=== PATIENT | female | born 1985 | race Caucasian/White ===

== ENCOUNTER 2017-08-12 11:04 | Emergency (ER) | payer MEDICAID ==
[~2017-08-12] VITALS: Ht 172.7 cm; Wt 81.6 kg
[~2017-08-12 11:04] MED LIST: CPR500T PO; CRS350T PO; DCS100C PO; DIAZ-345 PO; DIAZ10TA PO; DOCU100C37 PO; FOLI20CA PO; GBPN600T PO; HYDR25CA5 PO; HYOS0.1217 PO; IBUP-1780 PO; Ibuprofen PO; METO-370 PO; ONDA-43 PO; OXYC-12 PO; OXYC-465 PO; PNT40TEC PO; PREN1TAB19 PO; PRM25T PO; PROM6.25 PO; Tramadol Hcl PO
--- OUTSIDE RECORDS SUMMARY | 2017-08-12 11:10 | XMS REPORT | Clinical Summary ---
Author Author [facility] Organization [facility] Address Unknown Phone Unavailable Care Team Providers Care Industrial Relations Representative Name Role Phone PCP Unavailable Source Comments Some departments are not documenting in the electronic medical record. If you do not see the information that you expected, contact Release of Information in the Health Information Management department at [phone] for further assistance in locating additional records.[facility] Allergies Not on File Current Medications Not on file Active Problems Not on file Social History Tobacco Use Types Packs/Day Years Used Date Never Assessed Sex Assigned at Date Recorded Not on file Last Filed Vital Signs Not on file Plan of Treatment Health Maintenance Due Date Last Done Comments PHYSICAL (COMPREHENSIVE) 1994 EXAM PERTUSSIS VACCINE 1998 TETANUS VACCINE 01/29/2004 CERVICAL CANCER SCREENING 2017 INFLUENZA VACCINE 03/12/2017 Results Not on filefrom Last 3 Months
--- OUTSIDE RECORDS SUMMARY | 2017-08-12 11:11 | XMS REPORT | Continuity of Care Document ---
Author Author [facility] Organization [facility] Address Unknown Phone Unavailable Allergies Active Description Code Type Severity Reaction Onset Reported/Identified Relationship to Patient Clinical Status Yes codeine [id number] Drug Allergy Unknown N/A 09/17/2011 Yes Sulfa (Sulfonamide Antibiotics) [id number] Drug Allergy Unknown N/A 2011 Yes hydrocodone [id number] Drug Allergy Mild N/A 02/18/2013 Medications There is no data. Problems Date Dx Coded Attending Type Code Diagnosis Diagnosed By 02/19/2013 ANGIE SHEIKH DO S Ot 300.00 02/19/2013 KARMA SHEIKH DOLINE S Ot 305.1 02/19/2013 KARMA SHEIKH DOLINE S Ot 338.29 02/19/2013 JULIETTE SHEIKH DOQUELINE S Ot 530.81 02/19/2013 JULIETTE SHEIKH DOQUELINE S Ot 592.1 02/19/2013 JULIETTE SHEIKH DOQUELINE S Ot 722.52 02/19/2013 JULIETTE SHEIKH DOQUELINE S Ot 728.85 02/19/2013 KARMA SHEIKH DOLINE S Ot V13.02 04/11/2014 MICHAEL RAMOS, JESSICA Shen Ot 648.91 04/11/2014 MICHAEL RAMOS, JESSICA Shen Ot 658.01 04/11/2014 MICHAEL RAMOS, JESSICA Shen Ot V02.51 04/11/2014 MICHAEL RAMOS, JESSICA Shen Ot V06.1 04/11/2014 MICHAEL RAMOS, JESSICA Shen Ot V27.0 11/25/2014 ESTELA RAMOS, MARCELO Hackett Ot 649.53 11/25/2014 ESTELA RAMOS, MARCELO [place] Ot 651.03 11/25/2014 ESTELA RAMOS, MARCELO Hackett Ot V91.02 11/25/2014 RACIEL RAMOS, JASMEET Butler Ot 562.10 11/25/2014 RACIEL RAMOS, [facility] Ot V13.01 03/31/2015 MICHAEL RAMOS, JESSICA Ac Ot 644.03 03/31/2015 MICHAEL RAMOS, JESSICA G Ot 651.03 03/31/2015 MICHAEL RAMOS, JESSICA Shen Ot O30.009 03/31/2015 MICHAEL RAMOS, JESSICA Ac Ot V91.00 04/22/2015 RACIEL RAMOS, [facility] Ot 562.10 04/22/2015 RACIEL RAMOS, [facility] Ot V13.01 04/22/2015 RACIEL RAMOS, [facility] Ot 562.10 04/22/2015 RACIEL RAMOS, [facility] Ot V13.01 04/22/2015 MICHAEL RAMOS, JESSICA G Ot 275.2 04/22/2015 MICHAEL RAMOS, JESSICA Ac Ot 305.20 04/22/2015 MICHAEL RAMOS, JESSICA Ac Ot 427.89 04/22/2015 MICHAEL RAMOS, JESSICA Ac Ot 599.0 04/22/2015 MICHAEL RAMOS, JESSICA Shen Ot 646.63 04/22/2015 MICHAEL RAMOS, JESSICA Shen Ot 648.43 04/22/2015 MICHAEL RAMOS, JESSICA G Ot 648.63 04/22/2015 MICHAEL RAMOS, JESSICA Ac Ot 648.93 04/22/2015 MICHAEL RAMOS, JESSICA Shen Ot 649.03 04/22/2015 MICHAEL RAMOS, JESSICA Shen Ot 651.03 04/22/2015 MICHAEL RAMOS, JESSICA Ac Ot F12.10 04/22/2015 MICHAEL RAMOS, JESSICA Shen Ot N39.0 04/22/2015 MICHAEL RAMOS, JESSICA G Ot O30.009 04/22/2015 MICHAEL RAMOS, JESSICA G Ot V91.00 05/20/2015 MICHAEL RAMOS, JESSICA G Ot O30.033 05/20/2015 MICHAEL RAMOS, JESSICA Shen Ot Z37.2 05/20/2015 MICHAEL RAMOS, JESSICA Shen Ot Z3A.37 09/16/2015 LORRAINE RAMOS, VOLODYMYR Almanzar Ot L82.1 09/16/2015 LORRAINE RAMOS, VOLODYMYR Almanzar Ot L98.9 10/14/2015 RACIEL RAMOS, JASMEET Butler Ot M79.671 10/14/2015 JASMEET SCHRADER MD Ot M79.672 11/24/2015 MARCELO PALMER MD Ot F17.210 NICOTINE DEPENDENCE, CIGARETTES, UNCOMPL 11/24/2015 MARCELO PALMER MD Ot M94.0 CHONDROCOSTAL JUNCTION SYNDROME [TIETZE] Procedures There is no data. Results There is no data. Encounters ACCT No. Visit Date/Time Discharge Status Pt. Type Provider Facility Loc./Unit Complaint [id number] 11/24/2015 08:29:00 11/24/2015 11:10:00 DIS Emergency MARCELO PALMER MD [facility] ER [id number] 09/30/2015 14:30:00 09/30/2015 23:59:59 CLS Outpatient JASMEET SCHRADER MD [facility] RAD [id number] 09/16/2015 08:49:00 09/16/2015 11:55:00 DIS Outpatient VOLODYMYR PETERS MD [facility] [id number] 09/13/2015 05:33:00 09/13/2015 23:59:59 CLS Outpatient VOLODYMYR PETERS MD [facility] PREOP [id number] 05/18/2015 06:52:00 05/20/2015 23:59:00 DIS Inpatient JESSICA RODRIGUEZ MD [facility] LD [id number] 04/22/2015 13:50:00 04/22/2015 17:30:00 DIS Inpatient JESSICA RODRIGUEZ MD [facility] [id number] 03/31/2015 15:22:00 03/31/2015 18:20:00 DIS Outpatient JESSICA RODRIGUEZ MD [facility] WSo [id number] 11/25/2014 09:10:00 11/25/2014 12:22:00 DIS Emergency MARCELO PALMER MD [facility] ER [id number] 04/09/2014 06:37:00 04/11/2014 12:20:00 DIS Inpatient MICHAEL RAMOS, JESSICA Shen [facility] LDRP [id number] 05/27/2013 14:36:00 05/27/2013 23:59:59 CLS Outpatient RACIEL RAMOS, JASMEET Butler [facility] RAD [id number] 02/18/2013 12:03:00 02/19/2013 13:25:00 DIS Inpatient ANGIE SHEIKH DO S [facility] SURGICAL [id number] 01/08/2013 15:49:00 01/08/2013 23:59:59 CLS Outpatient
--- NOTE | 2017-08-12 13:10 | Diagnostic Imaging Report ---
INDICATION: Fever, posterior chest pain on the right, cough. FINDINGS: The lungs are clear. Cardiomediastinal and hilar contours were normal. Lung volumes are symmetric and unremarkable. No effusion, pneumothorax, or failure pattern. No free air beneath the diaphragms. IMPRESSION: No acute appearing abnormality. Dictated by: Dictated on workstation # [id number]
[2017-08-12] MEDS ORDERED: KETOROLAC 60 MG/2 ML VIAL IM ONE ×2 (13:23→13:30)
--- NOTE | 2017-08-12 13:23 | ED General ---
General Chief Complaint: Cough/Cold/Flu Symptoms Stated Complaint: FEVER;COUGH Nursing Triage Note: PT CO OF COLD COUGH AND FLU SX, HAD FEVER LAST PM 101.0 CO OF R SIDE AND UPPER BACK PAIN Nursing Sepsis Screen: No Definite Risk Source of Information: Patient Exam Limitations: No Limitations History of Present Illness Time Seen by Provider: 12:34 Initial Comments This 32-year-old woman presents to the emergency room with complaints of right- sided chest pain especially with movement, deep breathing, and cough. She has had a cough for about 6 weeks. She also had gastrointestinal symptoms last week with vomiting and diarrhea. Pain has been present in her right chest for about 5 days. She has not taken medication for it today. Allergies and Home Medications Allergies Coded Allergies: Sulfa (Sulfonamide Antibiotics) (Unverified Allergy, Unknown, 09/17/11) codeine (Unverified Allergy, Unknown, 09/17/11) hydrocodone (Verified Adverse Reaction, Mild, 02/18/13) Home Medications Metoprolol Succinate 50 Mg Tab.er.24h, 50 MG PO PRN, (Reported) Prednisone 20 Mg Tab, 40 MG PO DAILY, #8 Prescribed by: IRA MEJIA on 08/12/17 1327 Vit/Fe Fumarate/Fa 1 Each Tablet, 1 EACH PO DAILY, (Reported) Constitutional: no symptoms reported EENTM: no symptoms reported Respiratory: see HPI Cardiovascular: no symptoms reported Gastrointestinal: see HPI Genitourinary: no symptoms reported : No Musculoskeletal: see HPI Skin: no symptoms reported Psychiatric/Neurological: No Symptoms Reported Hematologic/Lymphatic: No Symptoms Reported Past Tgoxnjb-Bmsgjk-Wydzyd Hx Patient Social History Alcohol Use: Denies Use Recreational Drug Use: No Smoking Status: Current Everyday Smoker Type Used: Cigarettes Recent Foreign Travel: No Contact w/Someone Who Travel: No Recent Infectious Disease Expo: No Recent Hopitalizations: No Physical Abuse: No Sexual Abuse: No Immunizations Up To Date Date of Influenza Vaccine: May 13, 2015 Surgeries History of Surgeries: Yes (2 right foot surgeries, bladder biopsy, tailbone removed) Surgeries: Cardiac (Ablation for SVT), Orthopedic Respiratory History of Respiratory Disorde: No Respiratory Disorders: Asthma Cardiovascular History of Cardiac Disorders: Yes (Episodes of SVT) Neurological History of Neurological Disord: No Reproductive System : No Last Menstrual Period: Jul 22, 2017 Hx Reproductive Disorders: No Sexually Transmitted Disease: No HIV/AIDS: No Female Reproductive Disorders: Ovarian Cyst Genitourinary History of Genitourinary Disor: Yes Genitourinary Disorders: Kidney Stones, UTI-Chronic Gastrointestinal History of Gastrointestinal Di: Yes (HYPERMOTILITY) Gastrointestinal Disorders: Diverticulosis, Chronic Diarrhea, Esophageal Varices Musculoskeletal History of Musculoskeletal Dis: Yes Musculoskeletal Disorders: Degenerate Disk Disease, Arthritis, Scoliosis, Chronic Back Pain Endocrine History of Endocrine Disorders: No HEENT Loss of Vision: Denies Hearing Impairment: Denies Cancer History of Cancer: No Psychosocial History of Psychiatric Problem: Yes Behavioral Health Disorders: Anxiety Suicide Risk Score: 0 Integumentary History of Skin or Integumenta: No Blood Transfusions History of Blood Disorders: No Adverse Reaction to a Blood Tr: No Family Medical History Family Medial History: Not obtainable due to adoption Physical Exam Vital Signs Vital Sign - Last 12Hours 08/12/17 12:13 Temp 98.0 Pulse 72 Resp 18 B/P (MAP) 125/73 (90) Pulse Ox 97 Capillary Refill : Less Than 3 Seconds General Appearance: WD/WN, Mild Distress HEENT: PERRL/EOMI, TMs Normal, Normal ENT Inspection, Pharynx Normal Neck: Normal Inspection Respiratory: Lungs Clear, Normal Breath Sounds, No Accessory Muscle Use, No Respiratory Distress, Other (Right lateral and the lower anterior chest wall tender to palpation) Cardiovascular: Regular Rate, Rhythm, No Edema, No Murmur Gastrointestinal: Normal Bowel Sounds, Non Tender, Soft Extremity: Normal Inspection, No Pedal Edema Neurologic/Psychiatric: Alert, Oriented x3, No Motor/Sensory Deficits, Normal Mood/Affect, pin or clip fastener II-XII Norm as Tested Skin: Normal Color, Warm/Dry Progress/Results/Core Measures Suspected Sepsis Recent Fever Within 48 Hours: No Infection Criteria Present: None New/Unexplained Altered Menta: No Sepsis Screen: No Definite Risk Sepsis Diagnosis: SIRS Temperature:98.0 Pulse: 72 Respiratory Rate: 18 Blood Pressure 125 /73 Mean: 90 Results/Orders My Orders Vital Signs/I&O Capillary Refill : Less Than 3 Seconds Blood Pressure Mean: 90 Diagnostic Imaging Diagonstic Imaging: Xray Plain Films/CT/US/NM/MRI: chest Comments Chest x-ray viewed by me and report reviewed. See report below: NAME: EARL SCHRADER [facility]eev [facility] REC#: [id number] PT STATUS: REG ER : 1985 PHYSICIAN: IRA LOO MD ADMIT DATE: 08/12/17/ER Signed Date of Exam: 08/12/17 CHEST PA/LAT (2 VIEW) INDICATION: Fever, posterior chest pain on the right, cough. FINDINGS: The lungs are clear. Cardiomediastinal and hilar contours were normal. Lung volumes are symmetric and unremarkable. No effusion, pneumothorax, or failure pattern. No free air beneath the diaphragms. IMPRESSION: No acute appearing abnormality. Dictated by: Dictated on workstation # [id number] Dict: 08/12/17 1307 Trans: 08/12/17 1453 Interpreted by: LAINE DAVIS Electronically signed by: LAINE DAVIS 08/12/17 1453 Departure Impression Impression: Primary Impression: Pleuritic chest pain Disposition: HOME, SELF-CARE Condition: Improved Departure-Patient Inst. Decision time for Depature: 13:00 Referrals: NO,LOCAL PHYSICIAN (PCP) Primary Care Physician Patient Instructions: Chest Pain That Is Not Caused by the Heart (DC) Add. Discharge Instructions: You may continue taking ibuprofen up to 800 mg 3 times daily. Add Tylenol ( acetaminophen) up to 1000 g every 6 hours as needed for additional pain relief. Use the steroids (prednisone) as prescribed. You should experience gradual improvement in pain with these measures over the next few days. Return to care if you have worsening symptoms. Reduce smoking as much as possible and work toward quitting. All discharge instructions reviewed with patient and/or family. Voiced understanding. Scripts Prednisone (Prednisone) 20 Mg Tab 40 MG PO DAILY, #8 TAB Prov: IRA LOO MD 08/12/17 IRA LOO MD Aug 12, 2017 13:23
[2017-08-12] MEDS ORDERED: PRD20T PO (13:27)
[2017-08-12 14:07] VITALS: BP 125/73
== END 2017-08-12 14:07 | disposition home or self-care (01) ==
LOC: EDUNIT# 11:04 → ER 11:06
DX: R07.81 Pleurodynia (principal); J45.909 Unspecified asthma, uncomplicated; F41.9 Anxiety disorder, unspecified; F17.210 Nicotine dependence, cigarettes, uncomplicated; Z87.19 Personal history of other diseases of the digestive system
CPT/HCPCS: 71046; 99284

== ENCOUNTER 2019-04-30 15:08 | Emergency (ER) | payer MEDICAID ==
[~2019-04-30] VITALS: Ht 172 cm; Wt 88.0 kg
[~2019-04-30 15:08] MED LIST changes: +PRD20T PO
[2019-04-30] MEDS ORDERED: FAMOTIDINE 20MG/2ML IV (PEPCID) IV STA (15:33)
[2019-04-30] MEDS ORDERED: ANTACID SUSP 30 ML UDC (MYLANTA) PO ONE (15:45)
[2019-04-30] MEDS ORDERED: LIDOCAINE 2% VISCOUS 15 ML UDC PO ONE (15:45)
[2019-04-30 15:51] LABS: BASOPHILS % (AUTO) 0 % (0-10); EOSINOPHILS # (AUTO) 0.1 10^3/uL (0.0-0.3); EOSINOPHILS % (AUTO) 1 % (0-10); HEMATOCRIT 36 % (35-52); LYMPHOCYTES % (AUTO) 24 % (12-44); MEAN CORPUSCULAR HEMOGLOBIN 31 PG (25-34); MEAN CORPUSCULAR HGB CONC 34 G/DL (32-36); MEAN CORPUSCULAR VOLUME 93 FL (80-99); MEAN PLATELET VOLUME 9.7 FL (7.4-10.4); MONOCYTES # (AUTO) 0.9 X 10^3 (0.0-1.0); MONOCYTES % (AUTO) 7 % (0-12); NEUTROPHILS # (AUTO) 8.5 X 10^3 (1.8-7.8); NEUTROPHILS % (AUTO) 68 % (42-75); PLATELET COUNT 255 10^3/uL (130-400); RED CELL DISTRIBUTION WIDTH 12.8 % (10.0-14.5); WHITE BLOOD COUNT 12.5 10^3/uL (4.3-11.0)
[2019-04-30 16:03] LABS: ALANINE AMINOTRANSFERASE 6 U/L (0-55); ALBUMIN 3.5 GM/DL (3.2-4.5); ALKALINE PHOSPHATASE 107 U/L (40-136); BILIRUBIN,TOTAL 0.2 MG/DL (0.1-1.0); BUN/CREATININE RATIO 10; CALCIUM 9.1 MG/DL (8.5-10.1); CARBON DIOXIDE 21 MMOL/L (21-32); CHLORIDE 107 MMOL/L (98-107); CREATININE SERUM 0.72 MG/DL (0.60-1.30); GFR ESTIMATED > 60; GLUCOSE 87 MG/DL (70-105); MAGNESIUM 1.6 MG/DL (1.6-2.4); POTASSIUM 3.7 MMOL/L (3.6-5.0); SODIUM 137 MMOL/L (135-145); TOTAL PROTEIN 6.3 GM/DL (6.4-8.2)
--- NOTE | 2019-04-30 16:06 | NUR ---
states chest pain is improved- achy but better
--- NOTE | 2019-04-30 16:29 | ED Chest Pain ---
General Chief Complaint: Chest Pain Stated Complaint: CHEST/RIB PAIN 36 WKS PREG Nursing Triage Note: Ambualted to rm 3. SOA. 36wks gravid. States approx 15 min ago, sudden onset to sternal cp- sharp, worse with movement and inspiration. Denies radiation. C/O SOA, nausea and diaphoresis. States infant has been less active- movement noted with palpation, HR 132 per doppler. Abd is soft. Nursing Sepsis Screen: No Definite Risk Source: patient Exam Limitations: no limitations History of Present Illness Date Seen by Provider: Apr 30, 2019 Time Seen by Provider: 15:28 Initial Comments Here with report of central chest discomfort that started about 15 minutes ago. States that it was sharp and centered in the low chest without radiation. Patient is 36 weeks on her third . She 2 previous pregnancies and which one was twins. No complications during this . Has occasional Bib Morales contractions but nothing sustained and denies other problems or concerns. She follows with Dr. Hassan Timing/Duration: 1/2 hour, changing over time Severity/Quality: moderate, sharp Location: central Radiation: no radiation Activities at Onset: none Prior CP/Workup: no prior chest pain ASA po ACCOUNTING SYSTEM EXPERT: No NTG SL ACCOUNTING SYSTEM EXPERT: No Associated Symptoms: No back pain; nausea/vomiting, shortness of breath; No weakness Allergies and Home Medications Allergies Coded Allergies: Sulfa (Sulfonamide Antibiotics) (Unverified Allergy, Unknown, 09/17/11) codeine (Unverified Allergy, Unknown, 09/17/11) hydrocodone (Verified Adverse Reaction, Mild, 02/18/13) Home Medications Metoprolol Succinate 50 Mg Tab.er.24h, 50 MG PO PRN, (Reported) Prednisone 20 Mg Tab, 40 MG PO DAILY Prescribed by: IRA MEJIA on 08/12/17 1327 Vit/Fe Fumarate/Fa 1 Each Tablet, 1 EACH PO DAILY, (Reported) Patient Home Medication List Home Medication List Reviewed: Yes Review of Systems Review of Systems Constitutional: see HPI; No chills, No fever EENTM: No Symptoms Reported Respiratory: See HPI Cardiovascular: Chest Pain; Denies Edema Gastrointestinal: See HPI, Nausea; Denies Vomiting Genitourinary: No Symptoms Reported Musculoskeletal: no symptoms reported Skin: no symptoms reported All Other Systems Reviewed Negative Unless Noted: Yes Past Lcsowvr-Awgmwl-Rhpphr Hx Past Med/Social Hx: Reviewed Nursing Past Med/Soc Hx Patient Social History Alcohol Use: Denies Use Recreational Drug Use: No Smoking Status: Current Everyday Smoker Type Used: Cigarettes Recent Foreign Travel: No Contact w/Someone Who Travel: No Recent Infectious Disease Expo: Yes (kids at home ill with URI/Sinus) Recent Hopitalizations: No Physical Abuse: No Sexual Abuse: No Mistreated: No Fear: No Immunizations Up To Date Date of Influenza Vaccine: May 13, 2015 Past Medical History Surgeries: Yes (2 right foot surgeries, bladder biopsy, tailbone removed) Cardiac, Orthopedic Respiratory: No Asthma Cardiac: Yes (Episodes of SVT) Neurological: No : Yes Expected Date of Delivery: May 15, 2019 Reproductive Disorders: No Female Reproductive Disorders: Ovarian Cyst Sexually Transmitted Disease: No HIV/AIDS: No Genitourinary: Yes Kidney Stones, UTI-Chronic Gastrointestinal: Yes (HYPERMOTILITY) Diverticulosis, Chronic Diarrhea, Esophageal Varices Musculoskeletal: Yes Degenerate Disk Disease, Arthritis, Scoliosis, Chronic Back Pain Endocrine: No (borderline gestational diabetes) Loss of Vision: Denies Hearing Impairment: Denies Cancer: No Psychosocial: Yes Anxiety Integumentary: No Blood Disorders: No Adverse Reaction/Blood Tranf: No Family Medical History Reviewed Nursing Family Hx Not obtainable due to adoption Physical Exam Vital Signs Vital Signs - First Documented 04/30/19 15:10 Temp 36.6 Pulse 102 Resp 20 B/P (MAP) 119/71 (87) Pulse Ox 98 O2 Delivery Nasal Cannula O2 Flow Rate 2.00 Capillary Refill : Less Than 3 Seconds Height, Weight, BMI Height: 5'8.00" Weight: 180lbs. 11.0oz. 81.585427zl; 29.00 BMI Method:Stated General Appearance: No Apparent Distress, WD/WN HEENT: PERRL/EOMI, Pharynx Normal Neck: Non Tender, Supple Respiratory: Lungs Clear, Normal Breath Sounds Cardiovascular: Regular Rate, Rhythm, No Murmur Gastrointestinal: Non Tender, Soft, Other (gravid uterus. Positive movement) Extremity: Normal Range of Motion, Non Tender Neurologic/Psychiatric: Alert, Oriented x3 Skin: Normal Color, Warm/Dry Progress/Results/Core Measures Results/Orders Lab Results Laboratory Tests Test 04/30/19 15:24 Range/Units White Blood Count 12.5 H 4.3-11.0 10^3/uL Red Blood Count 3.85 L 4.35-5.85 10^6/uL Hemoglobin 12.0 11.5-16.0 G/DL Hematocrit 36 35-52 % Mean Corpuscular Volume 93 80-99 FL Mean Corpuscular Hemoglobin 31 25-34 PG Mean Corpuscular Hemoglobin Concent 34 32-36 G/DL Red Cell Distribution Width 12.8 10.0-14.5 % Platelet Count 255 130-400 10^3/uL Mean Platelet Volume 9.7 7.4-10.4 FL Neutrophils (%) (Auto) 68 42-75 % Lymphocytes (%) (Auto) 24 12-44 % Monocytes (%) (Auto) 7 0-12 % Eosinophils (%) (Auto) 1 0-10 % Basophils (%) (Auto) 0 0-10 % Neutrophils # (Auto) 8.5 H 1.8-7.8 X 10^3 Lymphocytes # (Auto) 3.0 1.0-4.0 X 10^3 Monocytes # (Auto) 0.9 0.0-1.0 X 10^3 Eosinophils # (Auto) 0.1 0.0-0.3 10^3/uL Basophils # (Auto) 0.0 0.0-0.1 10^3/uL Sodium Level 137 135-145 MMOL/L Potassium Level 3.7 3.6-5.0 MMOL/L Chloride Level 107 98-107 MMOL/L Carbon Dioxide Level 21 21-32 MMOL/L Anion Gap 9 5-14 MMOL/L Blood Urea Nitrogen 7 7-18 MG/DL Creatinine 0.72 0.60-1.30 MG/DL Estimat Glomerular Filtration Rate > 60 BUN/Creatinine Ratio 10 Glucose Level 87 70-105 MG/DL Calcium Level 9.1 8.5-10.1 MG/DL Corrected Calcium 9.5 8.5-10.1 MG/DL Magnesium Level 1.6 1.6-2.4 MG/DL Total Bilirubin 0.2 0.1-1.0 MG/DL Aspartate Amino Transf (AST/SGOT) 14 5-34 U/L Alanine Aminotransferase (ALT/SGPT) 6 0-55 U/L Alkaline Phosphatase 107 40-136 U/L Troponin I < 0.028 <0.028 NG/ML Total Protein 6.3 L 6.4-8.2 GM/DL Albumin 3.5 3.2-4.5 GM/DL My Orders Orders - DUSTIN TAVAREZ MD Cbc With Automated Diff (04/30/19 15:33) Comprehensive Metabolic Panel (04/30/19 15:33) Magnesium (04/30/19 15:33) Troponin I (04/30/19 15:33) Lidocaine 2% Viscous 15 Ml (Xylocaine Vi (04/30/19 15:45) Antacid Suspension (Mylanta Suspension (04/30/19 15:45) Famotidine Injection (Pepcid Injection) (04/30/19 15:33) Medications Given in ED Current Medications Medications Dose Ordered Sig/Bibi Route Start Time Stop Time Status Last Admin Dose Admin Al Hydrox/Mg Hydrox/Simethicone 30 ml ONCE ONCE PO 04/30/19 15:45 04/30/19 15:46 DC 04/30/19 15:45 30 ML Lidocaine HCl 15 ml ONCE ONCE PO 04/30/19 15:45 04/30/19 15:46 DC 04/30/19 15:45 15 ML Vital Signs/I&O 04/30/19 15:10 Temp 36.6 Pulse 102 Resp 20 B/P (MAP) 119/71 (87) Pulse Ox 98 O2 Delivery Nasal Cannula O2 Flow Rate 2.00 Blood Pressure Mean: 87 Progress Progress Note : Progress Note Seen and evaluated. IV, labs, EKG, GI cocktail and Pepcid 20 mg IV ordered. Monitor patient. 1630: Overall feeling better. I have paged Dr. Hassan and impending call back. 1651: I did discuss the case with Dr. Hassan and he agrees with Pepcid daily. We will continue that for the next few weeks. Discharged home with return precautions. Patient verbalize understanding instructions and agreement with plan. Initial ECG Impression Date: Apr 30, 2019 Initial ECG Impression Time: 15:13 Initial ECG Rate: 96 Initial ECG Rhythm: Normal Sinus Initial ECG Comparisson: Unchanged Comment Sinus rhythm with normal axis. No evidence of ST elevation [place]. Unchanged from previous. Interpreted by me. Departure Impression Primary Impression: Chest pain Qualified Codes: R07.9 - Chest pain, unspecified Additional Impression: Epigastric abdominal pain Disposition: HOME, SELF-CARE Condition: Improved Departure-Patient Inst. Decision time for Depature: 16:33 Referrals: NO,LOCAL PHYSICIAN (PCP/Family) Primary Care Physician Patient Instructions: Chest Pain, Acid Reflux (Gastroesophageal Reflux Disease), Adult (DC) Add. Discharge Instructions: All discharge instructions reviewed with patient and/or family. Voiced understanding. Follow-up with your OB doctor in one to 2 days for recheck. Return for worse pain, fever, vomiting, weakness, breathing problems or other concerns as needed. You may use [id number] famotidine 20 mg daily as needed for stomach upset and you may take that daily for the next few weeks. You may also take Tums. Drink plenty of fluids. Copy Copies To 1: JESSICA HASSAN MD, TIMOTHY D MD Apr 30, 2019 16:29
[2019-04-30 17:06] VITALS: BP 99/57
== END 2019-04-30 17:07 | disposition home or self-care (01) ==
LOC: EDUNIT# 15:08 → ER 15:10
DX: O26.893 Other specified pregnancy related conditions, third trimester (principal); R07.9 Chest pain, unspecified; R10.13 Epigastric pain; O99.513 Diseases of the respiratory system complicating pregnancy, third trimester; J45.909 Unspecified asthma, uncomplicated; O99.343 Other mental disorders complicating pregnancy, third trimester; F41.9 Anxiety disorder, unspecified; O99.333 Smoking (tobacco) complicating pregnancy, third trimester; F17.210 Nicotine dependence, cigarettes, uncomplicated; Z3A.36 36 weeks gestation of pregnancy; Z88.2 Allergy status to sulfonamides; Z88.5 Allergy status to narcotic agent; Z79.52 Long term (current) use of systemic steroids; Z87.440 Personal history of urinary (tract) infections; Z87.442 Personal history of urinary calculi; Z87.19 Personal history of other diseases of the digestive system
CPT/HCPCS: 36415; 80053; 83735; 84484; 85025

== ENCOUNTER 2019-05-06 15:00 | Outpatient (CLI) | payer MEDICAID ==
[~2019-05-06] VITALS: Ht 172.7 cm; Wt 87.2 kg
--- NOTE | 2019-05-06 14:55 | NUR ---
Arrived to unit ambulates self accompanied by s.o. with c/o contractions, nausea and diarrhea. plan of care reviewed with pt. to room 319. Gowned and urine sample obtained. To bed and oriented to room, call light and surroundings.
[2019-05-06 15:13] VITALS: BP 108/71
[2019-05-06 15:35] VITALS: BP 129/57
--- NOTE | 2019-05-06 15:45 | NUR ---
Dr lema called and notified of sve, contractions, fhr pattern, pt c/o nausea and diarrhea. New order received. plan of care reviewed with pt and s.o.
[2019-05-06] MEDS ORDERED: D5 LR IV SOLUTION 1,000 ML IV ONE (16:00)
[2019-05-06 16:05] VITALS: BP 113/57
[2019-05-06 16:40] VITALS: BP 109/57
--- NOTE | 2019-05-06 18:05 | NUR ---
Dr Hassan notified of sve, contractions, fhr pattern. New orders received. plan of care reviewed with pt and s.o.
[2019-05-06] MEDS ORDERED: D5 LR IV SOLUTION 1,000 ML IV SCH (18:15)
[2019-05-06 18:37] LABS: BASOPHILS % (AUTO) 0 % (0-10); EOSINOPHILS # (AUTO) 0.1 10^3/uL (0.0-0.3); EOSINOPHILS % (AUTO) 1 % (0-10); HEMATOCRIT 35 % (35-52); HEMOGLOBIN 11.7 G/DL (11.5-16.0); LYMPHOCYTES # (AUTO) 2.9 X 10^3 (1.0-4.0); LYMPHOCYTES % (AUTO) 24 % (12-44); MEAN CORPUSCULAR HEMOGLOBIN 31 PG (25-34); MEAN CORPUSCULAR HGB CONC 34 G/DL (32-36); MEAN CORPUSCULAR VOLUME 93 FL (80-99); MEAN PLATELET VOLUME 9.1 FL (7.4-10.4); MONOCYTES # (AUTO) 0.9 X 10^3 (0.0-1.0); MONOCYTES % (AUTO) 8 % (0-12); NEUTROPHILS # (AUTO) 8.1 X 10^3 (1.8-7.8); NEUTROPHILS % (AUTO) 67 % (42-75); PLATELET COUNT 257 10^3/uL (130-400); RED CELL DISTRIBUTION WIDTH 13.1 % (10.0-14.5)
--- NOTE | 2019-05-06 19:22 | NUR ---
Dr. Hassan here to see pt. Orders received to discharge pt. home on labor precautions.
--- NOTE | 2019-05-06 19:55 | NUR ---
Written discharge instructions reviewed with patient. Discharge instructions signed and copy given. Patient dismissed home, accompanied by SO. Condition stable. No signs or symptoms of distress.
--- NOTE | 2019-05-07 09:47 | Physician Query-Final Dx ---
GUICHO VALENCIA 05/07/19 0946: Clinic Account Progress/Dx Physician Query: Please give diagnosis Please include # weeks gestation Date of Service May 06, 2019 at 15:00 JESSICA RODRIGUEZ MD 05/07/19 1624: Clinic Account Progress/Dx DIAGNOSIS: Diagnosis 38 weeks false labor GUICHO VALENCIA May 07, 2019 09:46 JESSICA RODRIGUEZ MD May 07, 2019 16:24
[2019-05-07] MEDS ORDERED: OXYC1TAB87 PO (16:29)
[2019-05-07] MEDS ORDERED: DOCU-143 PO (16:29)
[2019-05-07] MEDS ORDERED: IBUP-1780 PO (16:29)
== END 2019-05-06 19:55 | disposition home or self-care (01) ==
LOC: LDRP 15:00 → WSo 15:00
PROVIDERS: ATTEND Obstetrics & Gynecology
DX: O47.1 False labor at or after 37 completed weeks of gestation (principal); Z3A.38 38 weeks gestation of pregnancy
CPT/HCPCS: 36415; 85025; 96360; 96361; 99214

== ENCOUNTER 2019-05-07 13:28 | Inpatient (IN) | payer MEDICAID ==
[~2019-05-07] VITALS: Ht 173 cm; Wt 87.7 kg
[2019-05-07] VITALS (39 sets, daily range): BP systolic 104–140; BP diastolic 50–93
--- NOTE | 2019-05-07 13:20 | NUR ---
EARL SCHRADER presented to unit via AMBULATORY from HOME, accompanied by S/O, with c/o POSSIBLE LEAKING OF FLUID. EARL SCHRADER S weighed, gowned, voided, and to bed. EFHM and TOCO applied, VS taken. EARL SCHRADER oriented to bed controls, call light, TV, heat, and A/C controls.
--- NOTE | 2019-05-07 13:40 | NUR ---
DR. RODRIGUEZ'S OFFICE CALLED, IN A PT ROOM, WILL CALL BACK SHORTLY.
--- NOTE | 2019-05-07 13:50 | NUR ---
DR. RODRIGUEZ CALLED UNIT BACK, INFORMED OF PT'S ARRIVAL AND SROM. NEW ORDERS RECEIVED.
[2019-05-07] MEDS ORDERED: OXYTOCIN/NORMAL SALINE 500 ML IV ONE (14:31)
[2019-05-07] MEDS ORDERED: D5 LR IV SOLUTION 1,000 ML IV ONE (14:31)
[2019-05-07] MEDS ORDERED: D5 LR IV SOLUTION 1,000 ML IV SCH (14:36)
[2019-05-07] MEDS ORDERED: OXYTOCIN/NORMAL SALINE 500 ML IV SCH ×4 (14:38→22:19)
[2019-05-07 14:43] LABS: BASOPHILS % (AUTO) 0 % (0-10); EOSINOPHILS # (AUTO) 0.1 10^3/uL (0.0-0.3); EOSINOPHILS % (AUTO) 1 % (0-10); HEMATOCRIT 37 % (35-52); HEMOGLOBIN 12.4 G/DL (11.5-16.0); LYMPHOCYTES # (AUTO) 2.1 X 10^3 (1.0-4.0); LYMPHOCYTES % (AUTO) 22 % (12-44); MEAN CORPUSCULAR HEMOGLOBIN 31 PG (25-34); MEAN CORPUSCULAR HGB CONC 34 G/DL (32-36); MEAN CORPUSCULAR VOLUME 93 FL (80-99); MEAN PLATELET VOLUME 9.6 FL (7.4-10.4); MONOCYTES # (AUTO) 0.6 X 10^3 (0.0-1.0); MONOCYTES % (AUTO) 6 % (0-12); NEUTROPHILS # (AUTO) 6.7 X 10^3 (1.8-7.8); NEUTROPHILS % (AUTO) 71 % (42-75); PLATELET COUNT 275 10^3/uL (130-400); RED CELL DISTRIBUTION WIDTH 13.1 % (10.0-14.5); WHITE BLOOD COUNT 9.5 10^3/uL (4.3-11.0)
[2019-05-07] MEDS ORDERED: SUFENTA 0.6MCG/ML BUPIVA 0.125 100 ML ONE (15:45)
[2019-05-07] MEDS ORDERED: fentaNYL INJECTION 100 MCG/2 ML AMP ONE (15:57)
[2019-05-07] MEDS ORDERED: LIDOCAINE PF 2% 5 ML (XYLOCAINE) VIAL ONE (15:57)
[2019-05-07] MEDS ORDERED: BUPIVACAINE 0.25% 30 ML (SENSORCAINE) VIAL ONE (15:57)
--- NOTE | 2019-05-07 15:57 | NUR ---
Dr Hassan called to inquire of pt status. Vag exam done immediately prior to epidural as instructed by physician. 3cm's, 50% -3. Radha, SENIOR TECHNOLOGIST student, in room to preform epidural. Unable to call physician immediately back with vag exam results. 1620 Dr Hassan here during epidural - informed of exam. 1649 Dr Hassan examined pt 3-4 cms, 70%, -1.
[2019-05-07] MEDS ORDERED: LACTATED RINGERS 1,000 ML IV SCH ×2 (16:25)
[2019-05-07] MEDS ORDERED: IBUP-1780 PO (16:29)
[2019-05-07] MEDS ORDERED: OXYC1TAB87 PO (16:29)
[2019-05-07] MEDS ORDERED: DOCU-143 PO (16:29)
[2019-05-07] MEDS ORDERED: EPIDURAL (SUFENTA 0.6MCG/ML BUPIVA 0.125%) 100 ML BAG EPI PRN (16:30)
[2019-05-07] MEDS ORDERED: diphenhydrAMINE 50 MG/ML INJ (BENADRYL) IV PRN ×2 (16:30)
[2019-05-07] MEDS ORDERED: ONDANSETRON 4 MG/2 ML (SDV) Z0FRAN IV PRN ×2 (16:30)
[2019-05-07] MEDS ORDERED: NALOXONE 0.4 MG/ML 1 ML (NARCAN) VIAL IV PRN ×2 (16:30)
--- NOTE | 2019-05-07 16:30 | Discharge Instructions ---
Discharge Instructions Discharge Medications New, Converted or Re-Newed RX: RX on Chart Patient Instructions Return to The Hospital For: As directed Activity & Diet Discharge Diet: No Restrictions Activity as Tolerated: No Orders-Post D/C & Referrals Follow Up Appt: Call to make follow up appt. for patient in 4 weeks. Activity Per routine post vaginal delivery instructions. Please call in RX to patient pharmacy. Diet as tolerated Patient may shower or tub bathe as desired. JESSICA RODRIGUEZ MD May 07, 2019 16:30
--- NOTE | 2019-05-07 16:43 | History & Physical ---
History and Physical Date Seen by Provider: May 07, 2019 Time Seen by Provider: 16:41 This patient is a 33-year-old white female with an EDC of 10 819 putting her at 38+ weeks gestation. She was admitted with complaint of spontaneous rupture membrane. Found to be grossly ruptured. Her has been complicated by gestational diabetes which has been well controlled with diet and she also has a history of SVT for which she takes metoprolol. She denies nausea vomiting or pain she is having occasional contraction. Her GBS culture was negative. Allergies are to this codeine and sulfa and oxycodone and hydrocodone Medications are vitamins and metoprolol 25 mg by mouth when necessary SVT Medical social and surgical histories are per the antepartum record HEENT exam is normal Neck is supple no lymphadenopathy no thyromegaly Abdomen is gravid soft nontender nondistended Extremities show no clubbing cyanosis. There is no Homans sign. Pelvic exam is pending monitor shows normal heart rate pattern with an occasional contraction. Assessment and plan term at 38+ weeks gestation with spontaneous rupture membranes. Patient will be augmented with Pitocin to promote active labor and effect delivery. Anticipation is for vaginal delivery. 38+ weeks gestation with spontaneous rupture membranes Allergies and Home Medications Allergies Coded Allergies: Sulfa (Sulfonamide Antibiotics) (Unverified Allergy, Unknown, 09/17/11) codeine (Unverified Allergy, Unknown, 09/17/11) hydrocodone (Verified Adverse Reaction, Mild, 02/18/13) Home Medications Docusate Sodium 100 Mg Capsule, 100 MG PO BID Prescribed by: JESSICA PALACIOS on 05/07/19 162 Ibuprofen 800 Mg Tablet, 800 MG PO Q6H PRN for PAIN Prescribed by: JESSICA PALACIOS on 05/07/19 162 Metoprolol Succinate 50 Mg Tab.er.24h, 50 MG PO PRN, (Reported) Oxycodone HCl/Acetaminophen 1 Each Tablet, 1 TAB PO Q4H Prescribed by: JESSICA PALACIOS on 05/07/19 162 Vit/Fe Fumarate/Fa 1 Each Tablet, 1 EACH PO DAILY, (Reported) Patient Home Medication List Home Medication List Reviewed: Yes JESSICA RODRIGUEZ MD May 07, 2019 16:43
[2019-05-07] MEDS ORDERED: LIDOCAINE/EPI 2% 1:200,00 (XYLOCAINE) 10 ML VIAL ONE (21:47)
[2019-05-07] MEDS ORDERED: CATHETER FLUSH 10 ML SYR IV SCH (22:00)
[2019-05-07] MEDS ORDERED: IBUPROFEN 800 MG (MOTRIN) TAB PO ONE (22:23)
[2019-05-07] MEDS: IBUPROFEN 800 MG (MOTRIN) TAB PO SCH (22:24)
[2019-05-07] MEDS ORDERED: MEASLES,MUMPS,RUBELLA 1 EA INJ SC ONE (22:30)
[2019-05-07] MEDS ORDERED: BENZOCAINE/MENTHOL (DERMOPLAST) 56 ML CAN TP PRN (22:30)
[2019-05-07] MEDS ORDERED: ONDANSETRON 4 MG/2 ML (SDV) Z0FRAN IVP PRN (22:30)
[2019-05-07] MEDS ORDERED: TETANUS,DIPTH,PERTUSS P/F (BOOSTRIX) 0.5 ML VIAL IM ONE (22:30)
[2019-05-07] MEDS ORDERED: KETOROLAC 30 MG/ML VIAL IVP PRN (22:30)
[2019-05-07] MEDS ORDERED: oxyCODONE/APAP 5/325MG (PERCOCET 5) TABLET PO PRN (22:30)
[2019-05-08] VITALS (7 sets, daily range): BP systolic 106–128; BP diastolic 55–63
[2019-05-08] MEDS ORDERED: BENZOCAINE/MENTHOL (DERMOPLAST) 56 ML CAN TP ONE (00:31)
--- NOTE | 2019-05-08 02:31 | OPERATIVE REPORT ---
DATE OF SERVICE: 05/07/2019 DELIVERY NOTE The patient delivered by term spontaneous vaginal delivery a viable male with Apgars of 8 and 8 at 1 and 5 minutes respectively, weight of 7 pounds 7 ounces, time of 7 and a cord blood pH that is pending. The infant was delivered over a second degree left posterolateral posterior fourchette laceration. The was bulb suctioned on delivery of the head which delivered from a straight OP. The delivery was completed atraumatically. The was bulb suctioned again, dried and stimulated. The umbilical cord was doubly clamped, father cut the cord, the baby was passed to mom's abdomen. Cord bloods were obtained. The placenta delivered promptly spontaneously Oh. It was normal with a 3-vessel cord. The cervix, vagina, rectum and perineum were examined and found intact, except for the left posterolateral posterior fourchette/perineal laceration of a second-degree in nature. That was repaired with a single suture of 3-0 Vicryl Rapide in the usual manner to good reapproximation and good hemostasis. Sponge and needle counts were correct on completion of the delivery and the repair. Estimated blood loss was around 200 mL. The patient tolerated the delivery and the repair well and remained in the LDR for recovery. The baby remained with the mom. Job ID: [id number] DocumentID: [id number] Dictated Date: 05/07/2019 21:56:46 Gluten Settling Tender Date: 05/08/2019 02:31:00 Dictated By: JESSICA RODRIGUEZ MD MTDD
[2019-05-08] MEDS ORDERED: IBUPROFEN 800 MG (MOTRIN) TAB PO ONE (03:57)
[2019-05-08] MEDS: IBUPROFEN 800 MG (MOTRIN) TAB PO SCH ×4 (04:01→22:17)
--- NOTE | 2019-05-08 07:49 | Progress Note ---
Standard Progress Note Progress Notes/Assess & Plan Date Seen by a Provider: May 08, 2019 Time Seen by a Provider: 07:48 Progress/Assessment & Plan This patient is without complaint. She is ambulating, voiding, tolerating oral intake well and has good pain control. Vital Signs Date Time Temp Pulse Resp B/P (MAP) Pulse Ox O2 Delivery O2 Flow Rate FiO2 05/08/19 04:00 36.2 68 16 114/55 (74) 95 Room Air 05/08/19 00:21 36.7 80 106/57 (73) 05/08/19 00:06 74 114/57 (76) 05/07/19 23:51 82 119/51 (73) 05/07/19 23:36 81 116/57 (76) 05/07/19 23:21 93 112/50 (70) 05/07/19 23:06 94 108/57 (74) 05/07/19 22:51 83 106/51 (69) 05/07/19 22:36 37.1 92 114/53 (73) 05/07/19 22:21 37.3 99 119/61 (80) 05/07/19 22:07 36.9 104 140/59 (86) 05/07/19 21:51 102 114/53 (73) 05/07/19 21:37 05/07/19 21:30 117 136/93 (107) 05/07/19 21:15 129 113/62 (79) 05/07/19 21:00 05/07/19 20:45 05/07/19 20:30 64 108/54 (72) 05/07/19 20:15 67 111/55 (73) 05/07/19 20:00 74 18 111/56 (74) 05/07/19 19:45 36.7 69 111/54 (73) 96 05/07/19 19:30 72 109/58 (75) 96 05/07/19 19:15 75 110/58 (75) 05/07/19 19:15 75 110/58 (75) 98 05/07/19 19:00 72 109/54 (72) 96 05/07/19 18:45 87 107/53 (71) 97 05/07/19 18:30 71 110/53 (72) 98 05/07/19 18:15 80 16 119/57 (77) 97 Room Air 05/07/19 18:00 37.0 68 113/55 (74) 99 Room Air 05/07/19 17:45 77 16 114/55 (74) 98 05/07/19 17:30 85 104/58 (73) 97 05/07/19 17:15 80 114/56 (75) 97 05/07/19 17:00 73 16 118/65 (82) 96 05/07/19 16:29 94 16 105/53 (70) 98 Room Air 05/07/19 16:27 37.0 80 16 113/59 (77) 98 Room Air 05/07/19 16:22 81 111/58 (75) 97 Room Air 05/07/19 16:19 78 116/59 (78) 98 Room Air 05/07/19 16:17 86 126/67 (86) 97 Room Air 05/07/19 16:07 77 115/66 (82) 98 Room Air 05/07/19 16:00 78 16 111/86 (94) Room Air 05/07/19 15:45 78 16 119/56 (77) Room Air 05/07/19 15:30 76 16 117/59 (78) Room Air 05/07/19 15:15 78 112/59 (76) Room Air 05/07/19 15:00 81 113/55 (74) Room Air 05/07/19 14:45 90 16 116/57 (76) Room Air 05/07/19 13:48 96 18 115/71 (86) Room Air I & O 05/08/19 07:00 Intake Total 3000 ml Output Total 150 ml Balance 2850 ml Vital signs are stable. Patient is afebrile. Fundus is firm below the umbilicus and nontender. Extremities show no clubbing cyanosis. There is no Homans. Assessment and plan day number 1 status post term vaginal delivery and doing well. Plan is for routine convalescence care JESSICA RODRIGUEZ MD May 08, 2019 07:49
--- NOTE | 2019-05-08 09:15 | NUR ---
initial shift assessment completed, see interventions for further.
[2019-05-08] MEDS: DOCUSATE SODIUM 100 MG (COLACE) CAP PO SCH ×2 (09:17→22:17)
--- NOTE | 2019-05-08 10:12 | Anesthesia-Regional Post-Op ---
Regional Patient Condition Mental Status: Alert, Oriented x3 Circulation: Same as Pre-Op Headache: Absent Sensation: Full Recovery Motor Block: Absent Post Op Complications Complications None Follow Up Care/Instructions Patient Instructions None needed. Anesthesia/Patient Condition Patient is doing well, no complaints, stable vital signs, no apparent adverse anesthesia problems. No complications reported per nursing. HANNAH SPENCE CRNA May 08, 2019 10:12
[2019-05-09] VITALS: BP 136/66
[2019-05-09 03:54] VITALS: BP 109/64
[2019-05-09] MEDS: IBUPROFEN 800 MG (MOTRIN) TAB PO SCH (03:56)
--- NOTE | 2019-05-09 07:29 | Progress Note ---
Standard Progress Note Progress Notes/Assess & Plan Date Seen by a Provider: May 09, 2019 Time Seen by a Provider: 07:27 Progress/Assessment & Plan This patient is without complaint. She is ambulating, voiding, tolerating oral intake well and has good pain control. Vital Signs Date Time Temp Pulse Resp B/P (MAP) Pulse Ox O2 Delivery O2 Flow Rate FiO2 05/08/19 04:00 36.2 68 16 114/55 (74) 95 Room Air 05/08/19 00:21 36.7 80 106/57 (73) 05/08/19 00:06 74 114/57 (76) 05/07/19 23:51 82 119/51 (73) 05/07/19 23:36 81 116/57 (76) 05/07/19 23:21 93 112/50 (70) 05/07/19 23:06 94 108/57 (74) 05/07/19 22:51 83 106/51 (69) 05/07/19 22:36 37.1 92 114/53 (73) 05/07/19 22:21 37.3 99 119/61 (80) 05/07/19 22:07 36.9 104 140/59 (86) 05/07/19 21:51 102 114/53 (73) 05/07/19 21:37 05/07/19 21:30 117 136/93 (107) 05/07/19 21:15 129 113/62 (79) 05/07/19 21:00 05/07/19 20:45 05/07/19 20:30 64 108/54 (72) 05/07/19 20:15 67 111/55 (73) 05/07/19 20:00 74 18 111/56 (74) 05/07/19 19:45 36.7 69 111/54 (73) 96 05/07/19 19:30 72 109/58 (75) 96 05/07/19 19:15 75 110/58 (75) 05/07/19 19:15 75 110/58 (75) 98 05/07/19 19:00 72 109/54 (72) 96 05/07/19 18:45 87 107/53 (71) 97 05/07/19 18:30 71 110/53 (72) 98 05/07/19 18:15 80 16 119/57 (77) 97 Room Air 05/07/19 18:00 37.0 68 113/55 (74) 99 Room Air 05/07/19 17:45 77 16 114/55 (74) 98 05/07/19 17:30 85 104/58 (73) 97 05/07/19 17:15 80 114/56 (75) 97 05/07/19 17:00 73 16 118/65 (82) 96 05/07/19 16:29 94 16 105/53 (70) 98 Room Air 05/07/19 16:27 37.0 80 16 113/59 (77) 98 Room Air 05/07/19 16:22 81 111/58 (75) 97 Room Air 05/07/19 16:19 78 116/59 (78) 98 Room Air 05/07/19 16:17 86 126/67 (86) 97 Room Air 05/07/19 16:07 77 115/66 (82) 98 Room Air 05/07/19 16:00 78 16 111/86 (94) Room Air 05/07/19 15:45 78 16 119/56 (77) Room Air 05/07/19 15:30 76 16 117/59 (78) Room Air 05/07/19 15:15 78 112/59 (76) Room Air 05/07/19 15:00 81 113/55 (74) Room Air 05/07/19 14:45 90 16 116/57 (76) Room Air 05/07/19 13:48 96 18 115/71 (86) Room Air I & O 05/08/19 07:00 Intake Total 3000 ml Output Total 150 ml Balance 2850 ml Vital signs are stable. Patient is afebrile. Fundus is firm below the umbilicus and nontender. Extremities show no clubbing cyanosis. There is no Homans. Assessment and plan day number 1 status post term vaginal delivery and doing well. Plan is for routine convalescence care May 09, 2019 Patient is without complaint. She is ambulating, voiding, tolerating oral intake well has good pain control. Patient is requesting discharge home. Vital Signs Date Time Temp Pulse Resp B/P (MAP) Pulse Ox O2 Delivery O2 Flow Rate FiO2 05/09/19 03:54 36.8 67 18 109/64 (79) 96 Room Air 05/09/19 00:00 36.7 73 20 136/66 (89) 98 Room Air 05/08/19 20:20 36.4 78 18 121/63 (82) 97 Room Air 05/08/19 16:10 35.1 77 18 128/55 (79) 94 Room Air 05/08/19 12:00 37.1 75 16 106/63 (77) 95 Room Air 05/08/19 09:15 36.5 74 18 111/58 (75) 95 Room Air Vital signs are stable. Patient is afebrile. Fundus is firm below the umbilicus and nontender. Extremities show no clubbing cyanosis. There is no Homans sign. Assessment and plan day number 2 status post term spontaneous vaginal delivery at 38 weeks gestation. Patient is to be discharged home and will follow-up in clinic Final Diagnosis 38 week spontaneous vaginal delivery JESISCA RODRIGUEZ MD May 09, 2019 07:28
[2019-05-09 08:00] VITALS: BP 111/51
[2019-05-09] MEDS ORDERED: TETANUS,DIPTH,PERTUSS P/F (BOOSTRIX) 0.5 ML VIAL IM ONE (08:15)
== END 2019-05-09 10:05 | disposition home or self-care (01) | DRG 805 ==
LOC: WSo 13:28 → LDRP 13:28 → WSo 13:49 → LDRP 13:50
PROVIDERS: ADMIT Obstetrics & Gynecology; ATTEND Obstetrics & Gynecology
PROC: 10E0XZZ Delivery of Products of Conception, External Approach (ICD-10-PCS; principal; 2019-05-07)
PROC: 0KQM0ZZ Repair Perineum Muscle, Open Approach (ICD-10-PCS; 2019-05-07)
DX: O24.420 Gestational diabetes mellitus in childbirth, diet controlled (principal); O99.42 Diseases of the circulatory system complicating childbirth; I47.1 Supraventricular tachycardia; O70.1 Second degree perineal laceration during delivery; Z3A.38 38 weeks gestation of pregnancy; Z37.0 Single live birth; Z88.2 Allergy status to sulfonamides; Z88.5 Allergy status to narcotic agent; Z23 Encounter for immunization
CPT/HCPCS: 36415; 82962; 85025; 86850; 86900; 86901; 90715; 96360; 96361; 99212; 99214

== ENCOUNTER 2022-10-02 17:35 | Emergency (ER) | payer MEDICAID ==
[~2022-10-02] VITALS: Ht 172 cm; Wt 86.0 kg
[~2022-10-02 17:35] MED LIST changes: +DOCU-143 PO; -METO-370 PO; +METO50TA7 PO; -OXYC-465 PO; +OXYC-556 PO; +OXYC1TAB87 PO
[2022-10-02 17:58] LABS: BASOPHILS % (AUTO) 0 % (0-10); EOSINOPHILS # (AUTO) 0.2 10^3/uL (0.0-0.3); EOSINOPHILS % (AUTO) 3 % (0-10); HEMATOCRIT 38 % (35-52); HEMOGLOBIN 13.1 g/dL (11.5-16.0); LYMPHOCYTES # (AUTO) 2.7 10^3/uL (1.0-4.0); LYMPHOCYTES % (AUTO) 53 % (12-44); MEAN CORPUSCULAR HEMOGLOBIN 31 pg (25-34); MEAN CORPUSCULAR HGB CONC 34 g/dL (32-36); MEAN CORPUSCULAR VOLUME 90 fL (80-99); MEAN PLATELET VOLUME 9.6 fL (9.0-12.2); MONOCYTES # (AUTO) 0.4 10^3/uL (0.0-1.0); MONOCYTES % (AUTO) 7 % (0-12); NEUTROPHILS # (AUTO) 1.9 10^3/uL (1.8-7.8); NEUTROPHILS % (AUTO) 36 % (42-75); PLATELET COUNT 186 10^3/uL (130-400); WHITE BLOOD COUNT 5.1 10^3/uL (4.3-11.0)
[2022-10-02] MEDS ORDERED: NITROGLYCERIN 0.4 MG SL TABS BTL 25'S SL PRN (18:00)
[2022-10-02] MEDS ORDERED: ASPIRIN 81 MG CHEW (CHILDREN'S ASA) PO ONE (18:00)
--- NOTE | 2022-10-02 18:05 | ED General ---
General Chief Complaint: Chest Pain Stated Complaint: CHEST PAIN, DIFFICULTY BREATHING Nursing Triage Note: ARRIVED VIA AMB TO ROOM 01 WITH COMPLAINTS OF CHEST PAIN STARTING THIS AM. STATES IT HURTS TO TAKE A DEEP BREATH AND TO COUGH. HX OF SVT. Source of Information: Patient History of Present Illness Date Seen by Provider: Oct 02, 2022 Time Seen by Provider: 17:50 Initial Comments PT ARRIVES VIA POV FROM HOME PT STATES SHE HAS BEEN SICK FOR THE LAST WEEK WITH: -COUGH AND CONGESTION -FEVER UP TO 102.1 -FATIGUE TODAY AROUND 0900, SHE BEGAN TO HAVE LEFT SIDED CHEST PAIN--STATES IT IS AN ACHE WITH HER HEART BEET SHE HAS ALSO BEEN SHORT OF BREATH TODAY NO PALPITATIONS NO DIZZINESS OR SYNCOPE NO SWELLING IN LEGS / FEET OR PAIN IN CALVES SHE HAS NOT SOUGHT CARE AT ANY TIME UNTIL TODAY SHE HAS NOT TAKEN ANYTHING FOR SYMPTOMS A COUPLE OF WEEKS AGO, SHE WASN'T FEELING WELL WITH SORE THROAT AND EAR PAIN--WAS SEEN AT [facility] AND WAS TESTED FOR STREP, AND GIVEN RX FOR EAR DROPS. PT STATES NO OTHER TESTS WERE DONE. PT SMOKES < 1 PPD, DENIES ALCOHOL OR DRUG USE DENIES ANY RESPIRATORY PROBLEMS PT HAS HAD ABLATION FOR SVT IN THE PAST, NO PROBLEMS SINCE THEN DOES NOT TAKE ANY DAILY MEDICATIONS. LMP: 09/25/22. S/P BTL. PCP: DR. LEFTY LAZO, ALSO GOES TO [facility] Allergies and Home Medications Allergies Coded Allergies: Sulfa (Sulfonamide Antibiotics) (Unverified Allergy, Unknown, 09/17/11) codeine (Unverified Allergy, Unknown, 09/17/11) hydrocodone (Verified Adverse Reaction, Mild, 02/18/13) Patient Home Medication List Docusate Sodium (Colace) 100 Mg Capsule, 100 MG PO BID Prescribed by: JESSICA PALACIOS on 05/07/19 1629 Ibuprofen (Ibuprofen) 800 Mg Tablet, 800 MG PO Q6H PRN for PAIN Prescribed by: JESSICA PALACIOS on 05/07/19 1629 Metoprolol Succinate (Metoprolol Succinate) 50 Mg Tab.er.24h, 50 MG PO PRN, (Reported) Entered as Reported by: GEOVANNI DAVILA on 09/13/15 0913 Oxycodone HCl/Acetaminophen (Percocet 5-325 mg Tablet) 1 Each Tablet, 1 TAB PO Q4H Prescribed by: JESSICA PALACIOS on 05/07/19 1629 Vit/Fe Fumarate/Fa ( Vitamins Tablet) 1 Each Tablet, 1 EACH PO DAILY, (Reported) Entered as Reported by: JING HEREDIA on 04/09/14 0841 Review of Systems Review of Systems Constitutional: see HPI, fever, malaise EENTM: see HPI, nose congestion Respiratory: see HPI, cough, short of breath Cardiovascular: see HPI, chest pain; No edema, No palpitations, No syncope, No vascular heart diseas Gastrointestinal: no symptoms reported Genitourinary: no symptoms reported : No LMP: Sep 25, 2022 Musculoskeletal: no symptoms reported Skin: no symptoms reported Psychiatric/Neurological: No Symptoms Reported Hematologic/Lymphatic: No Symptoms Reported Immunological/Allergic: no symptoms reported Past Bzgifwj-Aelqkt-Fpgtzy Hx Patient Social History Tobacco Use?: Yes Tobacco type used: Cigarettes Smoking Status: Current Everyday Smoker Substance use?: No Alcohol Use?: No Past Medical History Surgeries: Yes (2 right foot surgeries, bladder biopsy, tailbone removed;CARDIAC ABLATION) Adenoidectomy, Cardiac, Gallbladder, Orthopedic, Tonsillectomy, Tubal Ligation Respiratory: Yes Asthma Cardiac: Yes (Episodes of SVT-S/P ABLATION) Irregular Heartbeat Neurological: No : No Last Menstrual Period: Oct 02, 2022 Reproductive Disorders: No Female Reproductive Disorders: Ovarian Cyst Sexually Transmitted Disease: No HIV/AIDS: No Genitourinary: Yes Kidney Stones, UTI-Chronic Gastrointestinal: Yes (HYPERMOTILITY) Diverticulosis, Chronic Diarrhea, Esophageal Varices Musculoskeletal: Yes Degenerate Disk Disease, Arthritis, Scoliosis, Chronic Back Pain Endocrine: No (borderline gestational diabetes) Loss of Vision: Denies Hearing Impairment: Denies Cancer: No Psychosocial: Yes Anxiety Integumentary: No Blood Disorders: No Adverse Reaction/Blood Tranf: No Family Medical History Not obtainable due to adoption Physical Exam Vital Signs Vital Signs - First Documented 10/02/22 17:40 Temp 36.7 Pulse 83 Resp 16 B/P (MAP) 130/85 (100) Pulse Ox 94 O2 Delivery Room Air Capillary Refill : Less Than 3 Seconds Height, Weight, BMI Height: 5'8.00" Weight: 180lbs. 11.0oz. [id number]; 29.00 BMI Method:Stated General Appearance: No Apparent Distress, WD/WN HEENT: PERRL/EOMI, TMs Normal, Normal ENT Inspection, Pharynx Normal Neck: Normal Inspection Respiratory: Normal Breath Sounds, No Accessory Muscle Use, No Respiratory Distress, Other (LEFT MID AND UPPER CHEST TENDER TO PALPATION--REPRODUCES PAIN . ) Cardiovascular: Regular Rate, Rhythm, No Edema, No JVD, No Murmur, Normal Peripheral Pulses Gastrointestinal: Non Tender, Soft Back: No CVA Tenderness, No Vertebral Tenderness Extremity: Normal Inspection Neurologic/Psychiatric: Alert, Oriented x3, No Motor/Sensory Deficits, pelt shearer II- XII Norm as Tested Skin: Normal Color, Warm/Dry; No Rash Progress/Results/Core Measures Suspected Sepsis SIRS Temperature: Pulse: 83 Respiratory Rate: 16 Laboratory Tests 10/02/22 17:50: White Blood Count 5.1 Blood Pressure 130 /85 Mean: 100 Laboratory Tests 10/02/22 17:50: Creatinine 0.71, Platelet Count 186, Total Bilirubin 0.3 10/02/22 18:16: INR Comment 0.9 Results/Orders Lab Results Laboratory Tests Test 10/02/22 17:50 10/02/22 18:00 10/02/22 18:16 10/02/22 20:58 Range/Units White Blood Count 5.1 4.3-11.0 10^3/uL Red Blood Count 4.25 3.80-5.11 10^6/uL Hemoglobin 13.1 11.5-16.0 g/dL Hematocrit 38 35-52 % Mean Corpuscular Volume 90 80-99 fL Mean Corpuscular Hemoglobin 31 25-34 pg Mean Corpuscular Hemoglobin Concent 34 32-36 g/dL Red Cell Distribution Width 12.5 10.0-14.5 % Platelet Count 186 130-400 10^3/uL Mean Platelet Volume 9.6 9.0-12.2 fL Immature Granulocyte % (Auto) 0 % Neutrophils (%) (Auto) 36 L 42-75 % Lymphocytes (%) (Auto) 53 H 12-44 % Monocytes (%) (Auto) 7 0-12 % Eosinophils (%) (Auto) 3 0-10 % Basophils (%) (Auto) 0 0-10 % Neutrophils # (Auto) 1.9 1.8-7.8 10^3/uL Lymphocytes # (Auto) 2.7 1.0-4.0 10^3/uL Monocytes # (Auto) 0.4 0.0-1.0 10^3/uL Eosinophils # (Auto) 0.2 0.0-0.3 10^3/uL Basophils # (Auto) 0.0 0.0-0.1 10^3/uL Immature Granulocyte # (Auto) 0.0 0.0-0.1 10^3/uL Sodium Level 140 135-145 MMOL/L Potassium Level 3.8 3.6-5.0 MMOL/L Chloride Level 108 H 98-107 MMOL/L Carbon Dioxide Level 20 L 21-32 MMOL/L Anion Gap 12 5-14 MMOL/L Blood Urea Nitrogen 9 7-18 MG/DL Creatinine 0.71 0.60-1.30 MG/DL Estimat Glomerular Filtration Rate 114 BUN/Creatinine Ratio 13 Glucose Level 96 70-105 MG/DL Calcium Level 8.9 8.5-10.1 MG/DL Corrected Calcium 8.9 8.5-10.1 MG/DL Magnesium Level 1.8 1.6-2.4 MG/DL Total Bilirubin 0.3 0.1-1.0 MG/DL Aspartate Amino Transf (AST/SGOT) 95 H 5-34 U/L Alanine Aminotransferase (ALT/SGPT) 80 H 0-55 U/L Alkaline Phosphatase 54 40-136 U/L Total Creatine Kinase 2300 H 1732 H 29-168 U/L Creatine Kinase MB 7.2 *H 5.0 <6.6 NG/ML Myoglobin 163.7 H 121.1 H 10.0-92.0 NG/ML Troponin I < 0.028 < 0.028 <0.028 NG/ML B-Type Natriuretic Peptide 31.7 <100.0 PG/ML Total Protein 5.8 L 6.4-8.2 GM/DL Albumin 4.0 3.2-4.5 GM/DL Amylase Level 75 25-125 U/L Lipase 51 8-78 U/L Serum Test, Qualitative NEGATIVE NEGATIVE Influenza Type A (RT-PCR) Not Detected Not Detecte Influenza Type B (RT-PCR) Not Detected Not Detecte SARS-CoV-2 RNA (RT-PCR) Not Detected Not Detecte Prothrombin Time 12.3 12.2-14.7 SEC INR Comment 0.9 0.8-1.4 Activated Partial Thromboplast Time 28 24-35 SEC D-Dimer 0.73 H 0.00-0.49 UG/ML My Orders Orders - SHIVANI REINA DO Cbc With Automated Diff (10/02/22 17:50) Magnesium (10/02/22 17:50) Chest 1 View, Ap/Pa Only (10/02/22 17:50) Ekg Tracing (10/02/22 17:50) Comprehensive Metabolic Panel (10/02/22 17:50) Myoglobin Serum (10/02/22 17:50) Protime With Inr (10/02/22 17:50) Partial Thromboplastin Time (10/02/22 17:50) O2 (10/02/22 17:50) Monitor-Rhythm Ecg Trace Only (10/02/22 17:50) Ed Iv/Invasive Line Start (10/02/22 17:50) Creatine Kinase (10/02/22 17:50) Creatine Kinase Mb (10/02/22 17:50) Lipase (10/02/22 17:50) Amylase (10/02/22 17:50) Bnp Tish (10/02/22 17:50) Fibrin Degradation Products (10/02/22 17:50) Troponin I Tish (10/02/22 17:50) Nitroglycerin 0.4 Mg Btl 25's (Nitrostat (10/02/22 18:00) Aspirin Chewable Tablet (Baby Aspirin Ch (10/02/22 18:00) Hcg,Qualitative Serum (10/02/22 17:50) Covid 19 Inhouse Test (10/02/22 17:55) Influenza A And B By Pcr (10/02/22 17:55) Isolation Central Supply Req (10/02/22 17:55) Ct Angio Chest W (R/O Pe) (10/02/22 18:44) Ketorolac Injection (Toradol Injection) (10/02/22 18:45) Ed Iv/Invasive Line Start (10/02/22 18:45) Lactated Ringers (Lr 1000 Ml Iv Solution (10/02/22 18:45) Iohexol Injection (Omnipaque 350 Mg/Ml 1 (10/02/22 19:15) Received Contrast (Hold Metformin- Contr (10/02/22 19:15) Ns (Ivpb) (Sodium Chloride 0.9% Ivpb Bag (10/02/22 19:15) Fentanyl Inj (Sublimaze Injection) (10/02/22 20:00) Ed Iv/Invasive Line Start (10/02/22 20:09) Lactated Ringers (Lr 1000 Ml Iv Solution (10/02/22 20:15) Lactated Ringers (Lr 1000 Ml Iv Solution (10/02/22 20:10) Ekg Tracing (10/02/22 20:41) Creatine Kinase (10/02/22 20:41) Creatine Kinase Mb (10/02/22 20:41) Myoglobin Serum (10/02/22 20:41) Troponin I Tish (10/02/22 20:41) Medications Given in ED Current Medications Medications Dose Ordered Sig/Bibi Route Start Time Stop Time Status Last Admin Dose Admin Aspirin 324 mg ONCE ONCE PO 10/02/22 18:00 10/02/22 18:01 DC 10/02/22 18:08 324 MG Fentanyl Citrate 50 mcg ONCE ONCE IVP 10/02/22 20:00 10/02/22 20:01 DC 10/02/22 20:13 50 MCG Iohexol 100 ml ONCE ONCE IV 10/02/22 19:15 10/02/22 19:16 DC 10/02/22 19:28 74 ML Ketorolac Tromethamine 30 mg ONCE ONCE IVP 10/02/22 18:45 10/02/22 18:46 DC 10/02/22 19:01 30 MG Lactated Ringer's 1,000 ml @ 0 mls/hr Q0M ONCE IV 10/02/22 18:45 10/02/22 18:46 DC 10/02/22 19:01 0 MLS/HR Lactated Ringer's 1,000 ml @ 0 mls/hr Q0M ONCE IV 10/02/22 20:15 10/02/22 20:16 DC 10/02/22 20:12 0 MLS/HR Nitroglycerin 0.4 mg UD PRN SL 10/02/22 18:00 10/02/22 18:08 0.4 MG Sodium Chloride 100 ml ONCE ONCE IV 10/02/22 19:15 10/02/22 19:16 DC 10/02/22 19:28 80 ML Vital Signs/I&O 10/02/22 17:40 Temp 36.7 Pulse 83 Resp 16 B/P (MAP) 130/85 (100) Pulse Ox 94 O2 Delivery Room Air Capillary Refill : Less Than 3 Seconds Blood Pressure Mean: 100 Progress Note : Progress Note PPE WORN COVID AND FLU TESTING DONE GIVEN: -ASPIRIN -NTG X 1--PAIN DOWN TO 6-7/10 -TORADOL--PAIN DOWN TO 4/10 -IV FLUIDS VITALS STABLE NO C0UGH NO DYSPNEA NO HYPOXIA NO FEVER DURING ER STAY REPEAT TROPONIN IS NEGATIVE, REPEAT EKG IS UNCHANGED CK/CK-MB AND MYOGLOBIN LEVELS DOWN WITH IV FLUIDS REVIEWED TEST RESULTS, ANTICIPATED COURSE, SYMPTOMATIC TREATMENT, MEDICATIONS, NEED FOR FOLLOW UP AND RETURN PRECAUTIONS DISCUSSED WITH PT ECG Initial ECG Impression Date: Oct 02, 2022 Initial ECG Impression Time: 17:43 Initial ECG Rate: 76 Initial ECG Rhythm: Normal Sinus (IVCD; INCOMPLETE RBBB) Comment INTERPRETED BY ME EKG : EKG Time: 20:46 Rate: 61 Rhythm: Normal Sinus ECG Comparisson: Unchanged Comment INTERPRETED BY ME Diagnostic Imaging Comments CXR--PER RADIOLOGIST REPORT AT 1835 FINDINGS: The cardiac silhouette is within normal limits in size. No significant pulmonary vascular congestion. The lungs are clear of focal pulmonary opacity. No pleural effusion. No pneumothorax. No acute osseous abnormality. IMPRESSION: Stable appearing examination without acute cardiopulmonary abnormality. CT CHEST ANGIOGRAM--PER RADIOLOGIST REPORT AT 1950 FINDINGS: No pathologically enlarged lymph nodes within the chest. No aneurysmal dilatation of the thoracic aorta. The heart is within normal limits in size. No significant pericardial effusion. No pleural effusion. The trachea is patent. No pneumothorax. Dependent atelectasis. No significant filling defect within the central or segmental pulmonary arteries. Subsegmental pulmonary arteries are not optimally evaluated secondary to respiratory motion. Cholecystectomy. The visualized upper abdomen is otherwise unremarkable. No acute osseous abnormality. IMPRESSION: No significant pulmonary embolus within the limits of the examination. Dependent atelectasis within the bilateral lungs. Reviewed: Reviewed by Me Departure Impression Primary Impression: LEFT ANTERIOR CHEST WALL PAIN Additional Impression: ELEVATED CK, CK-MB AND MYOGLOBIN Disposition: 01 HOME, SELF-CARE Condition: Improved Departure-Patient Inst. Decision time for Depature: 21:43 Referrals: LEFTY LAZO MD (PCP/Family) Primary Care Physician Patient Instructions: Chest Pain (DC), Costochondritis (DC) Add. Discharge Instructions: HOME, REST NO STRENUOUS ACTIVITIES THIS WEEK LOTS OF CLEAR LIQUIDS--WATER, GATORADE, CLEAR JUICES--DRINK ENOUGH SO YOU ARE URINATING EVERY 2-3 HOURS WHILE AWAKE FOLLOW UP WITH YOUR DR.THIS WEEK FOR FURTHER CARE, CALL IN THE MORNING TO SCHED ULE A FOLLOW UP APPOINTMENT RETURN TO ER IF SYMPTOMS WORSEN All discharge instructions reviewed with patient and/or family. Voiced understanding. Scripts Cyclobenzaprine HCl (Cyclobenzaprine HCl) 10 Mg Tablet 10 MG PO Q8H PRN for SPASMS, #15 TAB 0 Refills Prov: SHIVANI REINA DO 10/02/22 Naproxen (Naproxen) 500 Mg Tablet. 500 MG PO BID, #20 TAB Prov: SHIVANI REINA DO 10/02/22 SHIVANI REINA DO Oct 02, 2022 18:05
[2022-10-02 18:15] LABS: POTASSIUM 3.8 MMOL/L (3.6-5.0)
[2022-10-02 18:16] LABS: CALCIUM 8.9 MG/DL (8.5-10.1)
[2022-10-02 18:18] LABS: TOTAL PROTEIN 5.8 GM/DL (6.4-8.2)
[2022-10-02 18:19] LABS: BILIRUBIN,TOTAL 0.3 MG/DL (0.1-1.0)
[2022-10-02 18:21] LABS: CREATININE SERUM 0.71 MG/DL (0.60-1.30)
[2022-10-02 18:24] LABS: MAGNESIUM 1.8 MG/DL (1.6-2.4)
--- NOTE | 2022-10-02 18:29 | Diagnostic Imaging Report ---
INDICATION: Chest pain COMPARISON: 08/12/2017. TECHNIQUE: Single radiograph of the chest dated 10/02/2022. FINDINGS: The cardiac silhouette is within normal limits in size. No significant pulmonary vascular congestion. The lungs are clear of focal pulmonary opacity. No pleural effusion. No pneumothorax. No acute osseous abnormality. IMPRESSION: Stable appearing examination without acute cardiopulmonary abnormality. Dictated by: Dictated on workstation # [id number]
[2022-10-02 18:35] LABS: CREATINE KINASE MB 7.2 NG/ML (<6.6)
[2022-10-02 18:37] LABS: INR 0.9 (0.8-1.4); PROTHROMBIN TIME PATIENT 12.3 SEC (12.2-14.7)
[2022-10-02] MEDS ORDERED: LACTATED RINGERS 1,000 ML IV ONE ×3 (18:45→20:15)
[2022-10-02] MEDS ORDERED: KETOROLAC 30 MG/ML VIAL IVP ONE (18:45)
[2022-10-02] MEDS ORDERED: IOHEXOL 350 MG/ML 100 ML (OMNIPAQUE 350) VIAL IV ONE (19:15)
[2022-10-02] MEDS ORDERED: HOLD METFORMIN - RECEIVED CONTRAST 20 ML VIAL IV SCH (19:15)
[2022-10-02] MEDS ORDERED: NS 100 ML (IVPB) BAG IV ONE (19:15)
--- NOTE | 2022-10-02 19:46 | Diagnostic Imaging Report ---
TECHNIQUE: Multiple contiguous axial images were obtained through the chest after the administration of intravenous contrast. All CT scans use one or more of the following dose optimizing techniques: automated exposure control, MA and/or KvP adjustment based on patient size and exam type or iterative reconstruction. Coronal MIP reformatted images are reviewed. INDICATION: Chest pain, dyspnea COMPARISON: Radiographs from same date FINDINGS: No pathologically enlarged lymph nodes within the chest. No aneurysmal dilatation of the thoracic aorta. The heart is within normal limits in size. No significant pericardial effusion. No pleural effusion. The trachea is patent. No pneumothorax. Dependent atelectasis. No significant filling defect within the central or segmental pulmonary arteries. Subsegmental pulmonary arteries are not optimally evaluated secondary to respiratory motion. Cholecystectomy. The visualized upper abdomen is otherwise unremarkable. No acute osseous abnormality. IMPRESSION: No significant pulmonary embolus within the limits of the examination. Dependent atelectasis within the bilateral lungs. Dictated by: Dictated on workstation # [id number]
[2022-10-02] MEDS ORDERED: fentaNYL INJ 100 MCG/2 ML AMP IVP ONE (20:00)
[2022-10-02 21:21] LABS: CREATINE KINASE 1732 U/L (29-168)
[2022-10-02] MEDS ORDERED: NAPR500T8 PO (21:47)
[2022-10-02] MEDS ORDERED: CYCL10TA25 PO (21:47)
[2022-10-02] MEDS ORDERED: RX-CYCLOBENZAPRINE 10 MG (FLEXERIL) TAB PPK#3 PO STA ×2 (21:48→21:56)
[2022-10-02] MEDS ORDERED: RX-NAPROXEN (NAPROSYN) 250 MG TAB PPK#4 PO STA ×2 (21:48→21:56)
[2022-10-02 22:00] VITALS: BP 112/80
== END 2022-10-02 22:00 | disposition home or self-care (01) ==
LOC: EDUNIT# 17:35 → ER 17:37
DX: R07.89 Other chest pain (principal); R74.8 Abnormal levels of other serum enzymes; F17.210 Nicotine dependence, cigarettes, uncomplicated; Z20.822 Contact with and (suspected) exposure to COVID-19; Z28.310 Unvaccinated for COVID-19
CPT/HCPCS: 36415; 71045; 71275; 80053; 82150; 82550; 82553; 83690; 83735; 83874; 83880; 84484; 84703; 85025; 85379; 85610; 85730; 87636; 93005; 93041

== ENCOUNTER → 2022-11-27 | Outpatient (CLI) | payer MEDICAID ==
[~2022-11-27] MED LIST changes: +CYCL10TA25 PO; +NAPR500T8 PO
== END ==
LOC: CARD 11:56
PROVIDERS: ATTEND Internal Medicine Cardiovascular Disease
DX: R00.2 Palpitations (principal)
CPT/HCPCS: 93306

== ENCOUNTER → 2023-04-30 | Outpatient (CLI) | payer MEDICAID | LOC: ORTHO 09:48 | PROVIDERS: ATTEND Orthopaedic Surgery | DX: M75.52 Bursitis of left shoulder (principal); E66.9 Obesity, unspecified; Z72.0 Tobacco use | CPT/HCPCS: 20610; 99203 ==

== ENCOUNTER → 2023-05-28 | Outpatient (CLI) | payer MEDICAID | LOC: ORTHO 10:26 | PROVIDERS: ATTEND Orthopaedic Surgery | DX: M75.52 Bursitis of left shoulder (principal); E66.9 Obesity, unspecified; Z72.0 Tobacco use | CPT/HCPCS: 99213 ==